=== PATIENT | female | born 1955 | race American Indian/Alaskan Native ===

== ENCOUNTER 2017-09-09 08:17 | Outpatient (CLI) | payer BC ==
--- NOTE | 2017-09-09 11:12 | Ultrasound Report ---
ULTRASOUND PELVIC COMPLETE ULTRASOUND TRANSVAGINAL HISTORY: Pelvic mass. COMPARISON: None. TECHNIQUE: Transabdominal and transvaginal ultrasound with color doppler interrogation. FINDINGS: The uterus and ovaries are not visualized consistent with the patient's history of hysterectomy. No evidence for pelvic cyst, mass or fluid collection. The bladder is empty. IMPRESSION: Hysterectomy. No pelvic mass is demonstrated. If further evaluation is needed, CT with contrast is recommended.
--- NOTE | 2017-09-10 07:59 | Ultrasound Report ---
ULTRASOUND SOFT TISSUE HEAD AND NECK History: Thyroid nodule Comparison: None. Findings: The thyroid gland is at the upper limits of normal size. The right thyroid lobe measures 4.3 x 1.5 x 1.7 cm. The left thyroid lobe measures 5.2 x 2.5 x 2.2 cm. The isthmus measures 1 cm in thickness. Multiple, bilateral thyroid nodules are identified. There are 2 nodules in the right thyroid lobe measuring 0.9 cm near mid pole and 1.8 cm at the inferior pole. There are 2 nodules in the isthmus measuring 1.3 cm and 0.9 cm. There are 2 large complex nodules in the inferior left thyroid lobe measuring 3.1 x 2.0 x 2.2 cm and 2.7 x 2.4 x 2.1 cm. These larger nodules are complex with increased vascularity and cystic change. No cervical adenopathy is detected. IMPRESSION: Bilateral thyroid nodules as described.
== END 2017-09-09 08:18 | disposition home or self-care (01) ==
LOC: US 08:17
PROVIDERS: ATTEND Internal Medicine Geriatric Medicine
DX: E04.2 Nontoxic multinodular goiter (principal); R19.00 Intra-abdominal and pelvic swelling, mass and lump, unspecified site; Z90.710 Acquired absence of both cervix and uterus
CPT/HCPCS: 76536; 76830; 76856

== ENCOUNTER 2017-10-08 08:41 | Outpatient (CLI) | payer BC | END 2017-10-08 08:42 | disposition home or self-care (01) | LOC: NM 08:41 | PROVIDERS: ATTEND Internal Medicine Geriatric Medicine | DX: E05.00 Thyrotoxicosis with diffuse goiter without thyrotoxic crisis or storm (principal) | CPT/HCPCS: 78012; A9516 ==

== ENCOUNTER 2017-11-30 11:22 | Outpatient (CLI) | payer BC ==
--- NOTE | 2017-11-30 13:26 | XRay Report ---
LEFT KNEE, 3 views: History: Left knee pain. The bony architecture is intact without evidence of fracture or dislocation. Mild medial compartment joint space narrowing and mild tibial spine spurring and retropatellar spurring is identified. No significant soft tissue abnormality is seen. IMPRESSION: Mild osteoarthritis.
--- NOTE | 2017-11-30 13:26 | XRay Report ---
LEFT HIP, 2 views: History: Left hip pain. The bony architecture is intact without evidence of fracture or dislocation. No significant soft tissue abnormality is seen. IMPRESSION: Normal left hip.
== END 2017-11-30 11:23 | disposition home or self-care (01) ==
LOC: XRAY 11:22
DX: M17.12 Unilateral primary osteoarthritis, left knee (principal); M25.552 Pain in left hip

== ENCOUNTER 2018-01-15 08:14 | Outpatient (CLI) | payer BC ==
--- NOTE | 2018-01-16 10:31 | Ultrasound Report ---
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 Within the right lobe, there are 2 small nodules measuring up to 0.9 centimeters each in the mid and lower pole. These have mixed echogenicity. The lower pole nodule has posterior echogenic calcification. The left lobe measures 5.3 x 2.6 x 2.3 centimeters. Within the left lobe, there are multiple nodules, including 2 dominant nodules, 1 within the left lower pole measuring 2.5 x 2.7 x 2.0 centimeters and 1 in the upper pole measuring 2.6 x 2.0 x 2.3 centimeters. There are smaller nodules at the isthmus. The 2 dominant nodules have peripheral vascularity and a complex heterogeneous appearance. Isthmus measures 0.5 centimeters with a hypertrophied appearance and ill-defined questionable nodules.. The thyroid is heterogeneous. IMPRESSION: Two dominant nodules in the left lobe with complex appearance. Recommend comparison with previous or surveillance imaging. 2 small nodules in the right lobe, 1 in the lower pole has a focus of calcification. Mildly hypertrophied appearing isthmus with 2 small nodules. Findings compatible with multinodular goiter.
== END 2018-01-15 08:15 | disposition home or self-care (01) ==
LOC: US 08:14
DX: E05.20 Thyrotoxicosis with toxic multinodular goiter without thyrotoxic crisis or storm (principal); M19.90 Unspecified osteoarthritis, unspecified site; Z88.8 Allergy status to other drugs, medicaments and biological substances
CPT/HCPCS: 76536

== ENCOUNTER 2018-08-03 07:23 | Outpatient (CLI) | payer BC ==
--- NOTE | 2018-08-03 09:31 | Fluoroscopy Report ---
MODIFIED BARIUM SWALLOW History: Choking episode Findings: Video radiography was provided by the radiologist for speech therapy to assess the swallowing mechanism. 1 fluoroscopic image was captured. Impression: Successful modified barium swallow.
== END 2018-08-03 07:24 | disposition home or self-care (01) ==
LOC: PT 07:23
PROVIDERS: ATTEND Internal Medicine Geriatric Medicine
DX: R09.89 Other specified symptoms and signs involving the circulatory and respiratory systems (principal)
CPT/HCPCS: 74230

== ENCOUNTER 2018-08-03 08:02 | Outpatient (CLI) | payer BC ==
--- NOTE | 2018-08-04 14:46 | Mammography Report ---
BILATERAL DIGITAL SCREENING MAMMOGRAM with CAD: 08/03/18 08:02:00 CLINICAL: Routine screening. COMPARISON:None available. FINDINGS: The breasts are mostly fatty with a few bilateral residual fibroglandular densities. No mass, architectural distortion or suspicious calcifications. IMPRESSION: No mammographic evidence of malignancy. BI-RADS CATEGORY: 1 - - Negative RECOMMENDATION: Routine mammographic screening in one year. COMMENT: Patient follow-up letters are generated by our [employer] application.
== END 2018-08-03 08:03 | disposition home or self-care (01) ==
LOC: MAMMO 08:02
PROVIDERS: ATTEND Internal Medicine Geriatric Medicine
DX: Z12.31 Encounter for screening mammogram for malignant neoplasm of breast (principal); M19.90 Unspecified osteoarthritis, unspecified site
CPT/HCPCS: 77067

== ENCOUNTER 2018-08-18 10:14 | Outpatient (CLI) | payer BC ==
--- NOTE | 2018-08-19 00:57 | Magnetic Resonance Report ---
FINAL REPORT PROCEDURE: MR LUMBAR SPINE WO CON TECHNIQUE: Magnetic resonance imaging of the lumbar spine was performed using standard pulse sequenc es without contrast material. CPT 29624 HISTORY: LUMBAR DISC DISEASE WITH RADICULOPATHY COMPARISON: No prior studies are available for comparison. FINDINGS: L1-2: There is a mild circumferential bulging disc. No spinal canal stenosis. L2-3: There is a moderate circumferential bulging disc. No spinal canal stenosis. L3-4: There is a moderate circumferential bulging disc. No spinal canal stenosis. L4-5: There is a moderate circumferential bulging disc. Mild bilateral lateral canal stenosis is note d. The AP spinal canal is maintained.. L5-S1: Mild posterior bulging disc. No spinal canal stenosis. Other: The alignment of the vertebral segments is normal. There is loss of disc space height at the L 4-5 level.. IMPRESSION: Moderate lumbar spondylosis with multilevel bulging disc as discussed above in detail. A moderate cir cumferential bulging disc at the L4-5 level does cause mild bilateral lateral canal stenosis.
== END 2018-08-18 10:15 | disposition home or self-care (01) ==
LOC: MRI 10:14
PROVIDERS: ATTEND Internal Medicine Geriatric Medicine
DX: M47.26 Other spondylosis with radiculopathy, lumbar region (principal); M51.16 Intervertebral disc disorders with radiculopathy, lumbar region; M48.061 Spinal stenosis, lumbar region without neurogenic claudication
CPT/HCPCS: 72148

== ENCOUNTER 2018-09-23 08:44 | Outpatient (CLI) | payer BC ==
--- NOTE | 2018-09-23 11:14 | XRay Report ---
Lumbar spine 3 views: Next History: Lumbar disc disease with radiculopathy. Findings: Normal height of vertebral bodies. Marked decrease in height of L4-L5 interspace. Minimal decrease in height of L2-L3 and L3-L4. Sclerotic edges articular surfaces the peripheral osteophytes suggestive of degenerative changes. No soft tissue calcification. Impression: Degenerative changes lumbar spine being most pronounced at L4-L5.
== END 2018-09-23 08:45 | disposition home or self-care (01) ==
LOC: XRAY 08:44
PROVIDERS: ATTEND Neurological Surgery
DX: M47.816 Spondylosis without myelopathy or radiculopathy, lumbar region (principal); M19.90 Unspecified osteoarthritis, unspecified site
CPT/HCPCS: 72110

== ENCOUNTER 2018-12-02 01:19 | Emergency (ER) | payer BC ==
[2018-12-02 02:53] LABS: Basophils # (Auto) 0.1 K/mm3 (0.0-0.1); Basophils % (Auto) 1.2 % (0.0-1.8); Eosinophils # (Auto) 0.2 K/mm3 (0.0-0.4); Eosinophils % (Auto) 2.7 % (0.0-4.3); Hemoglobin 13.4 gm/dl (10.1-14.3); Lymphocytes # (Auto) 2.4 K/mm3 (1.2-5.4); Lymphocytes % (Auto) 31.4 % (13.4-35.0); Mean Corpuscular HGB Conc 33 % (30-34); Mean Corpuscular Volume 74 fl (79-97); Monocytes # (Auto) 0.5 K/mm3 (0.0-0.8); Monocytes % (Auto) 7.2 % (0.0-7.3); Platelet Count 245 K/mm3 (140-440); Red Blood Count 5.56 M/mm3 (3.65-5.03); Red Cell Distribution Width 15.3 % (13.2-15.2)
[2018-12-02 03:16] LABS: Alanine Aminotransferase 17 units/L (7-56); Albumin 4.2 g/dL (3.9-5); BUN/Creatinine Ratio 14; Blood Urea Nitrogen 11 mg/dL (7-17); Calcium 9.4 mg/dL (8.4-10.2); Hemolysis Index 41
[2018-12-02] MEDS ORDERED: NACL 0.9% 500 ML 500 ML IV ONE (03:18)
[2018-12-02] MEDS ORDERED: ANTIVERT PO ONE (03:18)
[2018-12-02] MEDS ORDERED: ZOFRAN IV ONE (03:24)
--- NOTE | 2018-12-02 03:24 | Emergency Department Report ---
ED Neuro Deficit HPI - General Chief Complaint: Dizziness Stated Complaint: DIZZINESS/NAUSEA Time Seen by Provider: 12/02/18 03:06 Source: patient, RN notes reviewed, old records reviewed Mode of arrival: Wheelchair Limitations: Physical Limitation - History of Present Illness Initial Comments: Primary care Dr.: Dr. Zarco Past medical history: High cholesterol, hypothyroidism This is a 63-year-old female. The patient is not known to this provider previously. The patient presents to the emergency room today with a complaint of painless dizziness. She reports a sensation of feeling off balance, and movement. She denies physical pain. She denies tinnitus, ear pain, and change in auditory acuity. Her symptoms are constant, decreased with rest, decreased with closing her eyes, and increased with range of motion, walking, and sitting up. No other injuries. No other complaints. Patient believes symptoms started sometime between 12:00 and 1:00 AM today. -: Sudden Location: other Presenting Symptoms: Absent: Weak/Paralyzed One Side, Sudden, Severe Headache, Blurred/Loss of Vision, Facial Droop/Numbness, Unable to Speak Clearly, Altered Mental Status History of same: Yes Place: work Severity: moderate Quality: other Improves With: other Worsens With: other On Anticoagulants: No Context: sudden onset - Related Data Home Medications: Home Medications Medication Instructions Recorded Confirmed Last Taken Aspirin [Aspirin BABY CHEW TAB] 1 tab PO DAILY 12/02/18 12/02/18 Unknown AtorvaSTATin 10 mg PO DAILY 12/02/18 12/02/18 Unknown Levothyroxine 112 mcg PO DAILY 12/02/18 12/02/18 Unknown traZODone 50 mg PO HS 12/02/18 12/02/18 Unknown Previous Rx's Medication Instructions Recorded Last Taken Type Meclizine [Antivert] 12.5 mg PO BID PRN #14 tablet 12/02/18 Unknown Rx Allergies/Adverse Reactions: Allergies Allergy/AdvReac Type Severity Reaction Status Date / Time meperidine HCl [From Demerol] AdvReac Unknown Unverified 05/30/15 09:41 prochlorperazine AdvReac Unknown Unverified 05/30/15 09:41 [From Compazine] prochlorperazine edisylate AdvReac Unknown Unverified 05/30/15 09:41 [From Compazine] prochlorperazine maleate AdvReac Unknown Unverified 05/30/15 09:41 [From Compazine] ED Review of Systems ROS: Stated complaint: DIZZINESS/NAUSEA Other details as noted in HPI Constitutional: denies: fever Eyes: denies: eye discharge, vision change ENT: denies: ear pain, throat pain, hearing loss, epistaxis, congestion Respiratory: denies: cough, shortness of breath Cardiovascular: denies: chest pain Gastrointestinal: denies: abdominal pain Genitourinary: denies: dysuria Musculoskeletal: denies: back pain Skin: denies: lesions Neurological: abnormal gait, vertigo. denies: numbness, paresthesias, confusion Psychiatric: anxiety ED Past Medical Hx - Past Medical History Previous Medical History?: Yes Hx Arthritis: Yes (Left knee) Additional medical history: High Cholesterol. Herniated Lumbar Disc, - Surgical History Past Surgical History?: Yes Additional Surgical History: Hysterectomy, Thyroidectomy, Left heel bone spur removal, , Vocal Cord surgery, - Social History Smoking Status: Never Smoker Substance Use Type: None - Medications Home Medications: Home Medications Medication Instructions Recorded Confirmed Last Taken Type Aspirin [Aspirin BABY CHEW TAB] 1 tab PO DAILY 12/02/18 12/02/18 Unknown History AtorvaSTATin 10 mg PO DAILY 12/02/18 12/02/18 Unknown History Levothyroxine 112 mcg PO DAILY 12/02/18 12/02/18 Unknown History Meclizine [Antivert] 12.5 mg PO BID PRN #14 tablet 12/02/18 Unknown Rx traZODone 50 mg PO HS 12/02/18 12/02/18 Unknown History ED Neuro Physical Exam - General Limitations: No Limitations General appearance: alert, in no apparent distress Suspected Stroke: Yes - Head Head exam: Present: atraumatic, normocephalic - Eye Eye exam: Present: normal appearance, PERRL, EOMI, other (visual acuity intact to finger counting, color perception, reading at a close distance). Absent: nystagmus - ENT ENT exam: Present: normal exam, normal orophraynx, mucous membranes moist, normal external ear exam - Neck Neck exam: Present: normal inspection, full ROM. Absent: tenderness, meningismus - Respiratory Respiratory exam: Present: normal lung sounds bilaterally. Absent: respiratory distress - Cardiovascular Cardiovascular Exam: Present: normal rhythm, bradycardia, normal heart sounds. Absent: tachycardia, irregular rhythm, systolic murmur, diastolic murmur, rubs, gallop - GI/Abdominal GI/Abdominal exam: Present: soft. Absent: distended, tenderness, guarding, rebound, rigid, pulsatile mass - Extremities Exam Extremities exam: Present: normal inspection, full ROM, pedal edema, other (2+ pulses noted in the bilateral upper, lower extremities. Compartments soft. No long bony tenderness. The pelvis is stable.). Absent: joint swelling, calf tenderness - Back Exam Back exam: Present: normal inspection, full ROM. Absent: tenderness, CVA te nderness (R), CVA tenderness (L), muscle spasm, paraspinal tenderness, vertebral tenderness - Neurological Exam Neurological exam: Present: alert (there is no past-pointing. There is normal [id number]. There is negative pronator drift.), oriented X3, abnormal gait, other (Extraocular movements intact. Tongue midline. No facial droop. Facial sensation intact to light touch in the V1, V2, V3 distribution bilaterally. 5 and 5 strength in 4 extremities.. Sensation is intact to light touch in 4 extremities.). Absent: motor sensory deficit - NIHSS Assessment Interval: Baseline 1a. Level of Consciousness: alert/keenly responsive 1b. LOC Questions: answers both correctly 1c. LOC Commands: performs tasks correctly 2. Best Gaze: normal 3. Visual: no visual loss 4. Facial Palsy: normal symmetrical movement 5b. Motor Arm Right: no drift 5a. Motor Arm Left: no drift 6a. Motor Leg Left: no drift 6b. Motor Leg Right: no drift 7. Limb Ataxia: absent 8. Sensory: normal 9. Best Language: no aphasia 10. Dysarthria: normal 11. Extinction/Inattention: no abnormality Total Score: 0 Stroke Severity: No Stroke Symptoms - Psychiatric Psychiatric exam: Present: normal affect, normal mood - Skin Skin exam: Present: warm, dry, intact, normal color. Absent: rash ED Course Vital Signs 12/02/18 12/02/18 12/02/18 01:51 02:31 03:00 Temperature 98.5 F Pulse Rate 48 L 55 L 52 L Respiratory 18 13 12 Rate Blood Pressure 131/68 138/74 133/83 Blood Pressure [Right] O2 Sat by Pulse 99 100 98 Oximetry 12/02/18 12/02/18 03:08 04:13 Temperature 98.2 F Pulse Rate 53 L Respiratory 15 Rate Blood Pressure 133/83 Blood Pressure 128/63 [Right] O2 Sat by Pulse 98 99 Oximetry - Reevaluation(s) Reevaluation #1: 12/02/18 04:19 Bradycardia asymptomatic. TSH elevated. We'll defer to inpatient team or outpatient primary care doctor to further follow these up. Reevaluation #2: 12/02/18 04:[address] Cisneros service Reevaluation #3: 12/02/18 05:32 CTA head, neck negative for acute disease. - Lab Data Result diagrams: 12/02/18 02:36 12/02/18 02:36 Lab Results 12/02/18 12/02/18 12/02/18 Range/Units 02:36 02:36 02:36 WBC 7.5 (4.5-11.0) K/mm3 RBC 5.56 H (3.65-5.03) M/mm3 Hgb 13.4 (10.1-14.3) gm/dl Hct 41.0 (30.3-42.9) % MCV 74 L (79-97) fl MCH 24 L (28-32) pg MCHC 33 (30-34) % RDW 15.3 H (13.2-15.2) % Plt Count 245 (140-440) K/mm3 Lymph % (Auto) 31.4 (13.4-35.0) % Imperial % (Auto) 7.2 (0.0-7.3) % Eos % (Auto) 2.7 (0.0-4.3) % Baso % (Auto) 1.2 (0.0-1.8) % Lymph # 2.4 (1.2-5.4) K/mm3 Imperial # 0.5 (0.0-0.8) K/mm3 Eos # 0.2 (0.0-0.4) K/mm3 Baso # 0.1 (0.0-0.1) K/mm3 Seg Neutrophils % 57.5 (40.0-70.0) % Seg Neutrophils # 4.3 (1.8-7.7) K/mm3 PT (12.2-14.9) Sec. INR (0.87-1.13) APTT (24.2-36.6) Sec. Thrombin Time (15.1-19.6) Sec. Sodium 140 (137-145) mmol/L Potassium 4.2 (3.6-5.0) mmol/L Chloride 102.1 (98-107) mmol/L Carbon Dioxide 27 (22-30) mmol/L Anion Gap 15 mmol/L BUN 11 (7-17) mg/dL Creatinine 0.8 (0.7-1.2) mg/dL Estimated GFR > 60 ml/min BUN/Creatinine Ratio 14 % Glucose 141 H (65-100) mg/dL Calcium 9.4 (8.4-10.2) mg/dL Total Bilirubin 0.60 (0.1-1.2) mg/dL AST 19 (5-40) units/L ALT 17 (7-56) units/L Alkaline Phosphatase 120 (35-129) units/L Troponin T (0.00-0.029) ng/mL Total Protein 6.8 (6.3-8.2) g/dL Albumin 4.2 (3.9-5) g/dL Albumin/Globulin Ratio 1.6 % TSH 7.500 H (0.270-4.200) mlU/mL 12/02/18 12/02/18 Range/Units 03:52 03:52 WBC (4.5-11.0) K/mm3 RBC (3.65-5.03) M/mm3 Hgb (10.1-14.3) gm/dl Hct (30.3-42.9) % MCV (79-97) fl MCH (28-32) pg MCHC (30-34) % RDW (13.2-15.2) % Plt Count (140-440) K/mm3 Lymph % (Auto) (13.4-35.0) % Imperial % (Auto) (0.0-7.3) % Eos % (Auto) (0.0-4.3) % Baso % (Auto) (0.0-1.8) % Lymph # (1.2-5.4) K/mm3 Imperial # (0.0-0.8) K/mm3 Eos # (0.0-0.4) K/mm3 Baso # (0.0-0.1) K/mm3 Seg Neutrophils % (40.0-70.0) % Seg Neutrophils # (1.8-7.7) K/mm3 PT 14.1 (12.2-14.9) Sec. INR 1.03 (0.87-1.13) APTT 24.7 (24.2-36.6) Sec. Thrombin Time 16.5 (15.1-19.6) Sec. Sodium (137-145) mmol/L Potassium (3.6-5.0) mmol/L Chloride (98-107) mmol/L Carbon Dioxide (22-30) mmol/L Anion Gap mmol/L BUN (7-17) mg/dL Creatinine (0.7-1.2) mg/dL Estimated GFR ml/min BUN/Creatinine Ratio % Glucose (65-100) mg/dL Calcium (8.4-10.2) mg/dL Total Bilirubin (0.1-1.2) mg/dL AST (5-40) units/L ALT (7-56) units/L Alkaline Phosphatase (35-129) units/L Troponin T < 0.010 (0.00-0.029) ng/mL Total Protein (6.3-8.2) g/dL Albumin (3.9-5) g/dL Albumin/Globulin Ratio % TSH (0.270-4.200) mlU/mL - EKG Data -: EKG Interpreted by Dc EKG shows normal: sinus rhythm Rate: bradycardia When compared to previous EKG there are: previous EKG unavailable - Radiology Data Radiology results: report reviewed, image reviewed Noncontrast CT scan of the brain is negative for acute disease. - Medical Decision Making Differential diagnosis, including not limited to: Central vertigo, peripheral vertigo Assessment and plan: 63-year-old female with complaints of dizziness, unsteady gait, with an NIH score of 0. She has an unremarkable auditory/ear examination. Tympanic membranes are within normal limits. NIH score of 0. Therefore, not a TPA candidate. However, when we ambulate the patient, she walks with a broad- based gait, and is somewhat unsteady. Her symptoms were improved with mecli zine. Please note that there was a delay in initiating her stroke workup, until I personally saw the patient, and performed a history and physical. Her symptoms were not made known to this provider In any event, she was seen in consultation with stroke neurology, Dr. Chao, who also agrees the patient is not a TPA candidate, but agrees with plan for admission for workup. We treated the patient's symptoms, and she feels improved. Discussed plan of care for admission with patient and family, who have verbalized understanding. Hospital physician is paged to arrange admission. - Core Measures Measure Exclusions: not indicated - Thrombolytic Inclusion/Exclusion Thrombolytic Contraindications: Rapidily Improving s/s Critical care attestation.: If time is entered above; I have spent that time in minutes in the direct care of this critically ill patient, excluding procedure time. ED Disposition Clinical Impression: Vertigo, Unsteady gait Disposition: OP ADMIT IP TO THIS HOSP Is pt being admited?: Yes Does the pt Need Aspirin: Yes Condition: Good Prescriptions: Meclizine [Antivert] 12.5 mg PO BID PRN #14 tablet PRN Reason: Vertigo Referrals: NICHELLE MENDOZA MD [Primary Care Provider] - 3-5 Days
--- NOTE | 2018-12-02 03:39 | Emergency Department Report ---
ED General Adult HPI - General Chief complaint: Dizziness Stated complaint: DIZZINESS/NAUSEA Time Seen by Provider: 12/02/18 03:06 Source: patient, RN/MD Mode of arrival: Wheelchair Limitations: No Limitations - History of Present Illness Initial comments: [facility] Date of service: 12/02/2018 Impression: 63 year old female who presents with sudden onset of dizziness and gait unsteadiness while working. Concern for possible posterior circulation infarct Not a tpa candidate due to: Does not meet LVO screening criteria (no aphasia, neglect, gaze deviation, dense hemiparesis, or visual field deficits on exam), therefore advanced imaging is not indicated. Comments: Door Time: [employer] contacted: [facility] at bedside: NIHSS assessment start time (time the consultation begins): Last known well time (LKW): Recommendations: Start antiplatelet if no obvious contraindication Stroke protocol admission/ orderset suggested with placement on stroke floor tele monitoring Bedside swallow evaluation HOB less than 30 degrees IV Fluid hydration with NS Euglycemia avoid hyperthermia, PRN acetaminophen dvt ppx Consider inpatient neurology consultation Discussed with ED MD Please call with questions --------- CC History of Present Illness Patient is a Diagnostic: Exam: Mental Status: Awake, alert, oriented Naming: Intact Repetition: Intact Speech: fluent Cranial Nerves: Pupils: Equal round and reactive to light Extraocular movements: Intact in all cardinal gaze Ptosis: Absent Visual [place]: Intact to finger counting Facial sensation: Intact to pin and light touch Facial movements: Intact and symmetric Motor Exam: No drift Tremor/Abnormal Movements: Resting tremor: Absent Intention tremor: Absent Postural tremor: Absent Sensory Exam: Light touch: Intact Pinprick: Intact Coordination: Finger to nose: Intact Heel to cerrato: Intact NIHSS score: Medical Decision Making: - Extensive number of diagnosis or management options are considered above. - Extensive amount of complex data reviewed. - High risk of complication and/or morbidity or mortality are associated with differential diagnostic considerations above. - There may be Uncertain outcome and increased probability of prolonged functional impairment or high probability of severe prolonged functional impairment associated with some of these differential diagnosis. Medical Data Reviewed: 1.Data reviewed include clinical labs, radiology,Medical Tests; 2.Tests results discussed w/performing or interpreting physician; 3.Obtaining/reviewing old medical records; 4.Obtaining case history from another source; 5.Independent review of image, tracing or specimen. Patient was informed the Neurology Consult would happen via TeleHealth consult by way of interactive audio and video telecommunications and consented to receiving care in this manner. - Related Data Home Medications Medication Instructions Recorded Confirmed Last Taken Aspirin [Aspirin BABY CHEW TAB] 1 tab PO DAILY 12/02/18 12/02/18 Unknown AtorvaSTATin mg PO DAILY 12/02/18 Unknown Levothyroxine 112 mcg PO DAILY 12/02/18 12/02/18 Unknown traZODone 50 mg PO HS 12/02/18 12/02/18 Unknown Allergies Allergy/AdvReac Type Severity Reaction Status Date / Time meperidine HCl [From Demerol] AdvReac Unknown Unverified 05/30/15 09:41 prochlorperazine AdvReac Unknown Unverified 05/30/15 09:41 [From Compazine] prochlorperazine edisylate AdvReac Unknown Unverified 05/30/15 09:41 [From Compazine] prochlorperazine maleate AdvReac Unknown Unverified 05/30/15 09:41 [From Compazine] ED Review of Systems ROS: Stated complaint: DIZZINESS/NAUSEA Other details as noted in HPI ED Past Medical Hx - Past Medical History Previous Medical History?: Yes Hx Arthritis: Yes (Left knee) Additional medical history: High Cholesterol. Herniated Lumbar Disc, - Surgical History Past Surgical History?: Yes Additional Surgical History: Hysterectomy, Thyroidectomy, Left heel bone spur removal, , Vocal Cord surgery, - Social History Smoking Status: Never Smoker Substance Use Type: None - Medications Home Medications: Home Medications Medication Instructions Recorded Confirmed Last Taken Type Aspirin [Aspirin BABY CHEW TAB] 1 tab PO DAILY 12/02/18 12/02/18 Unknown History AtorvaSTATin mg PO DAILY 12/02/18 Unknown History Levothyroxine 112 mcg PO DAILY 12/02/18 12/02/18 Unknown History traZODone 50 mg PO HS 12/02/18 12/02/18 Unknown History ED Physical Exam - General Limitations: No Limitations ED Course Vital Signs 12/02/18 12/02/18 01:51 03:08 Temperature 98.5 F 98.2 F Pulse Rate 48 L 53 L Respiratory 18 15 Rate Blood Pressure 131/68 Blood Pressure 128/63 [Right] O2 Sat by Pulse 99 98 Oximetry ED Medical Decision Making - Lab Data Result diagrams: 12/02/18 02:36 12/02/18 02:36 Critical care attestation.: If time is entered above; I have spent that time in minutes in the direct care of this critically ill patient, excluding procedure time. ED Disposition Condition: Stable Referrals: NICHELLE MENDOZA MD [Primary Care Provider] - 3-5 Days
--- NOTE | 2018-12-02 03:40 | Cat Scan Report ---
PROCEDURE: CT HEAD/BRAIN WO CON TECHNIQUE: Computerized tomography of the head was performed without contrast material. HISTORY: Stroke symptoms COMPARISONS: None . FINDINGS: Skull and scalp: Normal . Paranasal sinuses: Normal . Ventricles and subarachnoid spaces: Normal . Cerebrum: No evidence of hemorrhage, acute infarction or mass . Cerebellum and brainstem: No evidence of hemorrhage, acute infarction or mass . Vasculature: Normal . Other: None . IMPRESSION: No evidence of hemorrhage, acute infarction or mass . If symptoms persist or worsen, MRI could be considered for further evaluation as clinically warranted . This document is electronically signed by Corazon Sam MD., December 02 2018 03:38:24 AM ET
--- NOTE | 2018-12-02 04:01 | Emergency Department Report ---
ED General Adult HPI - General Chief complaint: Dizziness Stated complaint: DIZZINESS/NAUSEA Time Seen by Provider: 12/02/18 03:06 Source: patient, RN/MD Mode of arrival: Wheelchair Limitations: No Limitations - History of Present Illness Initial comments: [facility] Date of service: 12/02/2018 Impression: 63 year old female who presented to the ED with sudden onset of vertigo, nausea, and vomiting. Not a tpa candidate due to: NIHSS of 0 Does not meet LVO screening criteria (no aphasia, neglect, gaze deviation, dense hemiparesis, or visual field deficits on exam), therefore advanced imaging is not indicated. Comments: Door Time: 1:28 [employer] contacted: 3:21 [employer] at bedside:3:21 NIHSS assessment start time (time the consultation begins): 3:55 Last known well time (LKW): 23:00 Recommendations: Start antiplatelet if no obvious contraindication Stroke protocol admission/ orderset suggested with placement on stroke floor tele monitoring Bedside swallow evaluation HOB less than 30 degrees IV Fluid hydration with NS Euglycemia avoid hyperthermia, PRN acetaminophen dvt ppx Consider inpatient neurology consultation Discussed with ED MD Please call with questions ---- ----- CC: stroke alert History of Present Illness Patient is a63 year old female who was at work and around 11pm she had sudden onset of vertigo, nausea, and vomiting. Symptoms started as soon as she stood up. On exam there was no obvious ataxia or weakness. Diagnostic: CT brain w/o contrast: No acute hemorrhage or large territory infarct. Exam: NIHSS 1A: Level of Consciousness - Alert; keenly responsive 0 1B: Ask Month and Age - Both Questions Right 0 1C: 'Blink Eyes' & 'Squeeze Hands' - Performs Both Tasks 0 2: Test Horizontal Extraocular Movements - Normal 0 3: Test Visual Berry - No Visual Loss 0 4: Test Facial Palsy - Normal symmetry 0 5A: Test Left Arm Motor Drift - No Drift for 10 Seconds 0 5B: Test Right Arm Motor Drift - No Drift for 10 Seconds 0 6A: Test Left Leg Motor Drift - No Drift for 5 Seconds 0 6B: Test Right Leg Motor Drift - No Drift for 5 Seconds 0 7: Test Limb Ataxia - No Ataxia 0 8: Test Sensation - Normal; No sensory loss 0 9: Test Language/Aphasia - Normal; No aphasia 0 10: Test Dysarthria - Normal 0 11: Test Extinction/Inattention - No abnormality 0 NIHSS score: 0 Medical Decision Making: - Extensive number of diagnosis or management options are considered above. - Extensive amount of complex data reviewed. - High risk of complication and/or morbidity or mortality are associated with differential diagnostic considerations above. - There may be Uncertain outcome and increased probability of prolonged func tional impairment or high probability of severe prolonged functional impairment associated with some of these differential diagnosis. Medical Data Reviewed: 1.Data reviewed include clinical labs, radiology,Medical Tests; 2.Tests results discussed w/performing or interpreting physician; 3.Obtaining/reviewing old medical records; 4.Obtaining case history from another source; 5.Independent review of image, tracing or specimen. Patient was informed the Neurology Consult would happen via TeleHealth consult by way of interactive audio and video telecommunications and consented to receiving care in this manner. - Related Data Home Medications Medication Instructions Recorded Confirmed Last Taken Aspirin [Aspirin BABY CHEW TAB] 1 tab PO DAILY 12/02/18 12/02/18 Unknown AtorvaSTATin mg PO DAILY 12/02/18 Unknown Levothyroxine 112 mcg PO DAILY 12/02/18 12/02/18 Unknown traZODone 50 mg PO HS 12/02/18 12/02/18 Unknown Allergies Allergy/AdvReac Type Severity Reaction Status Date / Time meperidine HCl [From Demerol] AdvReac Unknown Unverified 05/30/15 09:41 prochlorperazine AdvReac Unknown Unverified 05/30/15 09:41 [From Compazine] prochlorperazine edisylate AdvReac Unknown Unverified 05/30/15 09:41 [From Compazine] prochlorperazine maleate AdvReac Unknown Unverified 05/30/15 09:41 [From Compazine] ED Review of Systems ROS: Stated complaint: DIZZINESS/NAUSEA Other details as noted in HPI ED Past Medical Hx - Past Medical History Previous Medical History?: Yes Hx Arthritis: Yes (Left knee) Additional medical history: High Cholesterol. Herniated Lumbar Disc, - Surgical History Past Surgical History?: Yes Additional Surgical History: Hysterectomy, Thyroidectomy, Left heel bone spur removal, , Vocal Cord surgery, - Social History Smoking Status: Never Smoker Substance Use Type: None - Medications Home Medications: Home Medications Medication Instructions Recorded Confirmed Last Taken Type Aspirin [Aspirin BABY CHEW TAB] 1 tab PO DAILY 12/02/18 12/02/18 Unknown History AtorvaSTATin mg PO DAILY 12/02/18 Unknown History Levothyroxine 112 mcg PO DAILY 12/02/18 12/02/18 Unknown History traZODone 50 mg PO HS 12/02/18 12/02/18 Unknown History ED Physical Exam - General Limitations: No Limitations ED Course Vital Signs 12/02/18 12/02/18 01:51 03:08 Temperature 98.5 F 98.2 F Pulse Rate 48 L 53 L Respiratory 18 15 Rate Blood Pressure 131/68 Blood Pressure 128/63 [Right] O2 Sat by Pulse 99 98 Oximetry ED Medical Decision Making - Lab Data Result diagrams: 12/02/18 02:36 12/02/18 02:36 Critical care attestation.: If time is entered above; I have spent that time in minutes in the direct care of this critically ill patient, excluding procedure time. ED Disposition Clinical Impression: Vertigo Disposition: DC-09 OP ADMIT IP TO THIS HOSP Is pt being admited?: Yes Condition: Stable Referrals: NICHELLE MENDOZA MD [Primary Care Provider] - 3-5 Days
[2018-12-02] MEDS ORDERED: BABY ASPIRIN PO ONE (04:20)
[2018-12-02 04:34] LABS: INR 1.03 (0.87-1.13)
[2018-12-02 04:35] LABS: Partial Thromboplastin Time 24.7 Sec. (24.2-36.6); Thrombin Time 16.5 Sec. (15.1-19.6)
--- NOTE | 2018-12-02 04:55 | Event Note ---
Date: 12/02/18 C/o dizziness-sudden onset Has hx of Vertigo in past [employer] exam Nl exam Dx acute Labrynthitis Meclizine 12.5 mg po bid
--- NOTE | 2018-12-02 04:58 | Cat Scan Report ---
PROCEDURE: CT ANGIO HEAD, CT ANGIO NECK TECHNIQUE: Computerized tomographic angiography of the head and neck was performed after the IV inje ction of iodinated nonionic contrast including image processing. The image data was postprocessed us ing 2-dimensional multiplanar reformatted (MPR) and 3-dimensional (MIP and/or volume rendered) techni ques. Areas of stenosis are reported utilizing calculations described by nascet criteria. HISTORY: stroke sx COMPARISONS: Noncontrast head CT of the same date . FINDINGS: Head: The anterior and posterior communicating arteries are normal in caliber. Well opacified anterior and middle cerebral arteries. Minimal calcification in the supraclinoid internal carotid arteries result s in up to 10% stenosis. Branch vessels within the anterior and middle cerebral arterial distribution are well opacified and normal in caliber. Normal caliber basilar artery. Posterior cerebral arteries and their major branches are well opacifi ed and normal in caliber. NECK: The carotid and vertebral arteries are well opacified and normal in caliber. No stenosis. No wall irr egularity or dissection flap. No periarterial fluid or stranding. The cervical spine is intact. Mucosal spaces of the neck are grossly unremarkable. IMPRESSION: No intracranial stenosis/large vessel occlusion.The [place] is intact. Patent carotid and vertebral arteries. This document is electronically signed by Clovis Carrion MD., December 02 2018 04:56:24 AM ET
[2018-12-02 05:40] LABS: Bilirubin,Urine NEG (Negative); Blood,Urine NEG (Negative); Calcium Oxalate Crystals,Urine 2+; Color,Urine Yellow (Yellow); Mucus,Urine 3+ /HPF; Protein,Urine <15 mg/dL mg/dL (Negative); Urobilinogen,Urine < 2.0 mg/dL (<2.0)
[2018-12-02 05:50] VITALS: BP 124/61
== END 2018-12-02 05:40 | disposition admitted as inpatient to this hospital (09) ==
LOC: EEVIPCON 01:19 → ED 01:19
DX: R42 Dizziness and giddiness (principal); M17.12 Unilateral primary osteoarthritis, left knee; E78.5 Hyperlipidemia, unspecified; Z90.710 Acquired absence of both cervix and uterus; Z88.8 Allergy status to other drugs, medicaments and biological substances
CPT/HCPCS: 36415; 70450; 70496; 70498; 80053; 81001; 84439; 84443; 84484; 85025; 85610; 85670; 85730; 93005; 93010; 96361; 96374; 99285; J2405; J7040; Q9967

== ENCOUNTER 2019-07-31 06:47 | Emergency (ER) | payer BC ==
[2019-07-31] MEDS ORDERED: KETOROLAC 30 MG/1 ML INJ IM ONE (07:38)
[2019-07-31] MEDS ORDERED: CYCLOBENZAPRINE 10 MG TAB PO ONE (07:39)
--- NOTE | 2019-07-31 09:05 | Emergency Department Report ---
ED Back Pain/Injury HPI - General Chief Complaint: Back Pain/Injury Stated Complaint: LOWER BACK PAIN Time Seen by Provider: 07/31/19 07:14 Source: patient Limitations: No Limitations - History of Present Illness Initial Comments: This 64-year-old female with a history of back pain her last flareup was about a year ago Yesterday she started having mid lower back pain radiating down both hips worse on the left. She denies any recent falls or injuries. He denies any urinary symptoms no bowel or bladder incontinence. Patient also denies chest pain shortness of breath. Similar Symptoms Previously: Yes Place: home Quality: sharp Consistency: constant Improves With: none (Taking OTC meds with no improvement) Worsens With: movement Associated Symptoms: denies: confusion, weakness, chest pain, numbness, difficulty urinating, incontinence, constipation, headaches, abdominal pain, nausea/vomiting, rash - Related Data Home Medications Medication Instructions Recorded Confirmed Last Taken Aspirin [Aspirin BABY CHEW TAB] 1 tab PO DAILY 12/02/18 12/02/18 Unknown AtorvaSTATin 10 mg PO DAILY 12/02/18 12/02/18 Unknown Levothyroxine 112 mcg PO DAILY 12/02/18 12/02/18 Unknown traZODone 50 mg PO HS 12/02/18 12/02/18 Unknown Previous Rx's Medication Instructions Recorded Last Taken Type Meclizine [Antivert] 12.5 mg PO BID PRN #14 tablet 12/02/18 Unknown Rx methylPREDNISolone [Medrol 4MG 4 mg PO DAILY #1 tab.ds.pk 07/31/19 Unknown Rx DOSEPAK (21 tabs)] traMADoL [Ultram] 50 mg PO Q6HR PRN #21 tablet 07/31/19 Unknown Rx Allergies Allergy/AdvReac Type Severity Reaction Status Date / Time meperidine HCl [From Demerol] AdvReac Unknown Unverified 05/30/15 09:41 prochlorperazine AdvReac Unknown Unverified 05/30/15 09:41 [From Compazine] prochlorperazine edisylate AdvReac Unknown Unverified 05/30/15 09:41 [From Compazine] prochlorperazine maleate AdvReac Unknown Unverified 05/30/15 09:41 [From Compazine] ED Review of Systems ROS: Stated complaint: LOWER BACK PAIN Other details as noted in HPI Comment: All other systems reviewed and negative Constitutional: denies: chills, fever ENT: denies: ear pain, throat pain Respiratory: denies: cough, orthopnea Endocrine: no symptoms reported Gastrointestinal: denies: abdominal pain Musculoskeletal: back pain (radiating down both hips worse on the right) Neurological: denies: weakness, numbness, paresthesias, confusion, abnormal gait ED Past Medical Hx - Past Medical History Hx Arthritis: Yes (Left knee) Additional medical history: High Cholesterol. Herniated Lumbar Disc, - Surgical History Past Surgical History?: Yes Additional Surgical History: Hysterectomy, Thyroidectomy, Left heel bone spur removal, , Vocal Cord surgery, - Social History Smoking Status: Never Smoker Substance Use Type: None - Medications Home Medications: Home Medications Medication Instructions Recorded Confirmed Last Taken Type Aspirin [Aspirin BABY CHEW TAB] 1 tab PO DAILY 12/02/18 12/02/18 Unknown History AtorvaSTATin 10 mg PO DAILY 12/02/18 12/02/18 Unknown History Levothyroxine 112 mcg PO DAILY 12/02/18 12/02/18 Unknown History Meclizine [Antivert] 12.5 mg PO BID PRN #14 tablet 12/02/18 Unknown Rx traZODone 50 mg PO HS 12/02/18 12/02/18 Unknown History methylPREDNISolone [Medrol 4MG 4 mg PO DAILY #1 tab.ds.pk 07/31/19 Unknown Rx DOSEPAK (21 tabs)] traMADoL [Ultram] 50 mg PO Q6HR PRN #21 tablet 07/31/19 Unknown Rx ED Physical Exam - General Limitations: No Limitations General appearance: alert, in no apparent distress - Head Head exam: Absent: atraumatic - Eye Eye exam: Present: normal appearance - ENT ENT exam: Present: mucous membranes moist - Neck Neck exam: Present: normal inspection, full ROM - Respiratory Respiratory exam: Present: normal lung sounds bilaterally - Cardiovascular Cardiovascular Exam: Present: regular rate, bradycardia, normal heart sounds - GI/Abdominal GI/Abdominal exam: Present: soft. Absent: distended, tenderness - Extremities Exam Extremities exam: Present: normal inspection. Absent: pedal edema - Back Exam Back exam: Absent: CVA tenderness (R), CVA tenderness (L), vertebral tenderness - Neurological Exam Neurological exam: Present: alert, oriented X3. Absent: motor sensory deficit - Psychiatric Psychiatric exam: Present: normal affect - Skin Skin exam: Present: warm, dry, intact. Absent: rash ED Course Vital Signs 07/31/19 06:51 Temperature 97.2 F L Pulse Rate 54 L Respiratory 18 Rate Blood Pressure 125/68 O2 Sat by Pulse 98 Oximetry - Reevaluation(s) Reevaluation #1: 07/31/19 09:23 In to reval. pt reports some improvement but her pain is now 8/10 Will give percocet. ED Medical Decision Making - Medical Decision Making MRI Lumbar Spine 08/18/18 IMPRESSION: Moderate lumbar spondylosis with multilevel bulging disc as discussed above in detail. A moderate circumferential bulging disc at the L4-5 level does cause mild bilateral lateral canal stenosis. Critical Care Time: No Critical care attestation.: If time is entered above; I have spent that time in minutes in the direct care of this critically ill patient, excluding procedure time. ED Disposition Clinical Impression: Low back pain radiating down leg Disposition: DC-01 TO HOME OR SELFCARE Is pt being admited?: No Does the pt Need Aspirin: No Condition: Stable Instructions: Lumbar Radiculopathy (ED), Acute Low Back Pain (ED) Additional Instructions: Please follow-up with your doctor as soon as possible take medication as prescribed. In addition to what was prescribed he can also take [id number] Tylenol for pain. Warm compresses to her lower back at least 3 times a day and gentle stretching exercises as tolerated. You should also consider seeing an orthopedic that specializes in back pain Prescriptions: methylPREDNISolone [Medrol 4MG DOSEPAK (21 tabs)] 4 mg PO DAILY #1 tab.ds.pk traMADoL [Ultram] 50 mg PO Q6HR PRN #21 tablet PRN Reason: Pain Referrals: PRIMARY CARE,MD [Primary Care Provider] - 3-5 Days Time of Disposition: 10:34
[2019-07-31] MEDS ORDERED: oxyCODONE /ACETAMINOPHEN 5-325MG TAB PO ONE (09:22)
[2019-07-31 10:49] VITALS: BP 124/64
== END 2019-07-31 10:48 | disposition home or self-care (01) ==
LOC: ED 06:47
DX: M54.5 Low back pain (principal); M13.862 Other specified arthritis, left knee; E78.00 Pure hypercholesterolemia, unspecified; Z98.890 Other specified postprocedural states; Z90.710 Acquired absence of both cervix and uterus; Z79.899 Other long term (current) drug therapy; Z88.1 Allergy status to other antibiotic agents; Z88.8 Allergy status to other drugs, medicaments and biological substances
CPT/HCPCS: 96372; 99282; J1885

== ENCOUNTER 2019-10-27 07:50 | Emergency (ER) | payer BC ==
[2019-10-27 08:01] VITALS: BP 157/72
--- NOTE | 2019-10-27 08:05 | Emergency Department Report ---
Minor Respiratory - HPI Chief Complaint: Upper Respiratory Infection Stated Complaint: COUGH Duration: Today Pain Location: Chest Severity: mild Minor Respiratory: Yes Able to Tolerate Fluids, Yes Cough, Yes Sick Contacts, No Rhinorrhea, No Sore Throat, No Ear Pain, No Hemoptysis, No Chest Pain, No Shortness of Breath, No Fever Other History: Patient is a 64-year-old -[place] female who comes to the ER with a dry cough that started yesterday. 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 She has had ongoing exposure for severa l weeks. Last night she developed a metallic taste in her mouth associated with a dry cough. The cough is been intermittent through the night. Patient denies shortness of breath or fever. On arrival to the ER her vital signs are normal. Given known exposures patient is being treated as a suspected COVID patient. ED Review of Systems ROS: Stated complaint: COUGH Other details as noted in HPI Comment: All other systems reviewed and negative ED Past Medical Hx - Past Medical History Previous Medical History?: Yes Hx Arthritis: Yes (Left knee) Additional medical history: High Cholesterol. Herniated Lumbar Disc, - Surgical History Past Surgical History?: Yes Additional Surgical History: Hysterectomy, Thyroidectomy, Left heel bone spur removal, , Vocal Cord surgery - Family History Family history: no significant - Social History Smoking Status: Never Smoker Substance Use Type: None - Medications Home Medications: Home Medications Medication Instructions Recorded Confirmed Last Taken Type Aspirin [Aspirin BABY CHEW TAB] 1 tab PO DAILY 12/02/18 12/02/18 Unknown History AtorvaSTATin 10 mg PO DAILY 12/02/18 12/02/18 Unknown History Levothyroxine 112 mcg PO DAILY 12/02/18 12/02/18 Unknown History Meclizine [Antivert] 12.5 mg PO BID PRN #14 tablet 12/02/18 Unknown Rx traZODone 50 mg PO HS 12/02/18 12/02/18 Unknown History methylPREDNISolone [Medrol 4MG 4 mg PO DAILY #1 tab.ds.pk 07/31/19 Unknown Rx DOSEPAK (21 tabs)] traMADoL [Ultram] 50 mg PO Q6HR PRN #21 tablet 07/31/19 Unknown Rx Azithromycin [Zithromax Z-DL] 250 mg PO DAILY #6 tablet 10/27/19 Unknown Rx Benzonatate [Tessalon Perles] 100 mg PO Q12H PRN #20 capsule 10/27/19 Unknown Rx Minor Respiratory Exam - Exam General: Vital signs noted. No distress. Alert and acting appropriately. HEENT: Yes Moist Mucous Membranes, No Pharyngeal Erythema, No Pharyngeal Exudates, No Rhinorrhea, No Conjuctival Injection, No Frontal Tenderness, No Maxillary Tenderness Ear: Neither TM Bulge, Neither TM Erythema, Neither EAC Pain, Neither EAC Discharge Neck: Yes Supple, No Adenopathy Lungs: Yes Good Air Exchange, No Wheezes, No Ronchi, No Stridor, No Cough, No Labored Respirations, No Retractions, No Use of Accessory Muscles, No Other Abnormal Lung Sounds Heart: Yes Regular, No Murmur Abdomen: Yes Normal Bowel Sounds, No Tenderness, No Peritoneal Signs Skin: No Rash, No Edema Neurologic: Alert and oriented, no deficits. Musculoskeletal: Unremarkable. ED Course Vital Signs 10/27/19 07:51 Temperature 98.3 F Pulse Rate 61 Respiratory 18 Rate Blood Pressure 157/72 O2 Sat by Pulse 99 Oximetry ED Medical Decision Making - Lab Data Result diagrams: 10/27/19 08:13 10/27/19 08:13 - Radiology Data Radiology results: report reviewed, image reviewed - Medical Decision Making Labs 10/27/19 10/27/19 08:13 08:13 WBC 5.4 RBC 5.57 H Hgb 13.4 Hct 40.5 MCV 73 L MCH 24 L MCHC 33 RDW 15.0 Plt Count 249 Lymph % (Auto) 22.5 [place] % (Auto) 10.9 H Eos % (Auto) 2.6 Baso % (Auto) 0.6 Lymph # 1.2 [place] # 0.6 Eos # 0.1 Baso # 0.0 Seg Neutrophils % 63.4 Seg Neutrophils # 3.4 Sodium 138 Potassium 4.0 Chloride 102.7 Carbon Dioxide 25 Anion Gap 14 BUN 11 Creatinine 0.7 Estimated GFR > 60 BUN/Creatinine Ratio 16 Glucose 118 H Calcium 9.1 Vital Signs 10/27/19 07:51 Temperature 98.3 F Pulse Rate 61 Respiratory 18 Rate Blood Pressure 157/72 O2 Sat by Pulse 99 Oximetry X-ray with no consolidation or patchy infiltrate suggestive of pneumonia. Vital signs normal no fever no hypoxia. Patient nontoxic ambulatory and in no acute distress. Assessment unremarkable. Patient is not wheezing. Labs noted no leukocytosis. No other differential finding suggestive of COVID at this time. I had a long discussion with the patient regarding her risk for COVID being high given her recurrent exposures. I have confirmed with the charge nurse Padmini that we do not have rapid screening test available for employees. I have advised the patient to follow-up [facility] and her primary care provider. I discussed with her the use of rapid testing at [facility] as well as antibody tests and the fallacies associated with these. I have encouraged her to monitor her clinical symptoms and to socially distance. This includes distancing herself from her and a friend who lives in the home. As for work to avoid potential spread I would recommend following up with [facility] for instructions and advisement from infectious disease. Patient being discharged home with normal vital signs and a detailed follow-up plan of care - Differential Diagnosis Rule out pneumonia/COVID/URI Critical care attestation.: If time is entered above; I have spent that time in minutes in the direct care of this critically ill patient, excluding procedure time. ED Disposition Clinical Impression: URTI (acute upper respiratory infection), Suspected COVID-19 virus infection Disposition: DC-01 TO HOME OR SELFCARE Is pt being admited?: No Does the pt Need Aspirin: No Condition: Stable Instructions: COVID-19 Additional Instructions: STAY WELL HYDRATED MEDS ORDERED TODAY FOLLOW UP WITH PCP AND [facility] DISTANCING TYLENOL FOR PAIN OR FEVER Prescriptions: Benzonatate [Tessalon Perles] 100 mg PO Q12H PRN #20 capsule PRN Reason: Cough Azithromycin [Zithromax Z-DL] 250 mg PO DAILY #6 tablet Referrals: PRIMARY CARE, [Primary Care Provider] - 3-5 Days Forms: Work/School Release Form(ED) Time of Disposition: 09:00
[2019-10-27 08:30] LABS: Basophils % (Auto) 0.6 % (0.0-1.8); Eosinophils # (Auto) 0.1 K/mm3 (0.0-0.4); Eosinophils % (Auto) 2.6 % (0.0-4.3); Hematocrit 40.5 % (30.3-42.9); Hemoglobin 13.4 gm/dl (10.1-14.3); Lymphocytes # (Auto) 1.2 K/mm3 (1.2-5.4); Lymphocytes % (Auto) 22.5 % (13.4-35.0); Mean Corpuscular HGB Conc 33 % (30-34); Mean Corpuscular Volume 73 fl (79-97); Monocytes # (Auto) 0.6 K/mm3 (0.0-0.8); Monocytes % (Auto) 10.9 % (0.0-7.3); Platelet Count 249 K/mm3 (140-440); Red Blood Count 5.57 M/mm3 (3.65-5.03)
--- NOTE | 2019-10-27 08:38 | XRay Report ---
CHEST 2 VIEWS INDICATION / CLINICAL INFORMATION: cough. COMPARISON: None available. FINDINGS: SUPPORT DEVICES: None. HEART / MEDIASTINUM: No significant abnormality. LUNGS / PLEURA: No significant pulmonary or pleural abnormality. No pneumothorax. ADDITIONAL FINDINGS: Healed left clavicle fracture. IMPRESSION: 1. No acute findings. Signer Name: Pankaj Rizvi MD Signed: 10/27/2019 8:34 AM Workstation Name: [id number]
[2019-10-27 08:44] LABS: BUN/Creatinine Ratio 16; Blood Urea Nitrogen 11 mg/dL (7-17); Calcium 9.1 mg/dL (8.4-10.2); Hemolysis Index 3
== END 2019-10-27 09:44 | disposition home or self-care (01) ==
LOC: ED 07:50
DX: J06.9 Acute upper respiratory infection, unspecified (principal); M17.12 Unilateral primary osteoarthritis, left knee; E78.00 Pure hypercholesterolemia, unspecified; M51.26 Other intervertebral disc displacement, lumbar region; Z20.828 Contact with and (suspected) exposure to other viral communicable diseases; Z98.890 Other specified postprocedural states; Z90.710 Acquired absence of both cervix and uterus; Z90.89 Acquired absence of other organs; Z79.2 Long term (current) use of antibiotics; Z79.899 Other long term (current) drug therapy; Z88.8 Allergy status to other drugs, medicaments and biological substances
CPT/HCPCS: 36415; 71046; 80048; 85025